=== PATIENT | male | born 1975 | race Caucasian/White ===

== ENCOUNTER 2023-03-26 13:34 | Outpatient (CLI) | payer MEDICAID, SELFPAY ==
--- NOTE | 2023-03-26 13:44 | XR_ITS ---
WS: [id number] Left knee, 4 views including skyline view of the patella, 03/26/2023 Clinical Data: LEFT KNEE JOINT PAIN Comparison: AP both knees, 10/26/2012 Findings: There is medial joint compartment narrowing with a small spur of the medial tibial plateau and latera l femoral condyle. There is spurring of the posterior left patella. There are no fractures or disloca tions. The soft tissues are normal. Impression: Mild osteoarthritis of the left knee Kellgren-Julius Classification: grade 2 (minimal): definite osteophytes and possible joint space na rrowing
== END 2023-03-26 13:35 | disposition home or self-care (01) ==
PROVIDERS: PCP Nurse Practitioner Family; Visit Provider Nurse Practitioner Family
DX: M17.12 Unilateral primary osteoarthritis, left knee (principal)
CPT/HCPCS: 73564

== ENCOUNTER 2024-10-19 10:45 | Emergency (ER) | payer MEDICAID, SELFPAY ==
[2024-10-19 10:48] VITALS: BP 157/107; PULSE 70; RESP 26; TEMP 36.8; O2SAT 98; BMI 47.7
--- NOTE | 2024-10-19 11:05 | W.ED.BACK ---
HPI - Back Pain/Injury General: Chief Complaint: Back Pain/Injury Stated Complaint: abd and back pain Time Seen by Provider: 10/19/24 10:54 Source: patient Mode of arrival: ambulatory Limitations: no limitations History of Present Illness: Patient is a 49-year-old male who presents to ED today with complaint of left-sided back pain beginning this morning. Pain has been constant since onset. He describes it as a stabbing sensation. He does feel like pain radiates into the left side of his abdomen. No history of kidney or ureterolithiasis. He is not complaining of dysuria, frequency, urgency, hematuria. He has not noticed a rash. Upon arrival to the emergency department, he clearly appears uncomfortable. No known injury or trauma. He does have chronic lumbar back pain and takes celebrex, gabapentin, and baclofen for this. He states his pain today is not his typical back pain. He is not having any numbness, tingling, loss of sensation to his lower extremities. MD elicited complaint: back pain Pertinent past history: prior back pain Onset (ago): hour(s) Timing: constant Severity: severe Similar Symptoms Previously: No Quality: stabbing Location: left flank Radiation: abdomen Exacerbating factors: none Relieving factors: none Associated symptoms: Deny abdominal pain, chills, change in bowel habits, dysuria, fatigue, fever(s), nausea, urinary urgency or vomiting Work related injury: No Related Data Home Medications ?Medication ?Instructions ?Recorded ?Confirmed celecoxib 200 mg capsule 200 mg PO DAILY 10/19/24 10/19/24 gabapentin 100 mg capsule 100 - 200 mg PO QPM 10/19/24 10/19/24 tirzepatide (weight loss) 5 mg/0.5 5 mg SUBCUT Q7D 10/19/24 10/19/24 mL subcutaneous pen injector (Zepbound) Previous Rx's ?Medication ?Instructions ?Recorded hydrocodone 5 mg-acetaminophen 325 1 tab PO Q6H PRN pain #14 tabs 10/19/24 mg tablet ondansetron 4 mg disintegrating 4 mg PO Q8H PRN nausea and 10/19/24 tablet vomiting #14 tabs tamsulosin 0.4 mg capsule (Flomax) 0.4 mg PO DAILY #10 caps 10/19/24 Allergies Allergy/AdvReac Type Severity Reaction Status Date / Time Penicillins Allergy ALGY-Anaphy Verified 10/19/24 10:52 laxis Review of Systems Const: Denies: fever(s), chills, body aches, fatigue or malaise Card: Denies: chest pain Resp: Denies: dyspnea GI: Denies: abdominal pain, nausea, vomiting or change in bowel habits : Reports: flank pain; Denies: difficulty urinating, dysuria, urinary frequency, urinary urgency or urinary hesitancy Musc: Reports: back pain (L flank); Denies: neck pain, extremity pain, extremity swelling, joint pain, joint swelling or joint redness Skin/Breast: Denies: rash Neuro: Denies: dizziness Physical Exam Const: COMMON NORMALS: patient oriented x3, no limitations, alert and well nourished GENERAL APPEARANCE: in distress (appears uncomfortable secondary to pain) NUTRITIONAL APPEARANCE: obese morbidly obese (BMI 47.7) ORIENTATION/CONSCIOUSNESS: Yes awake, Yes oriented to person, Yes oriented to place and Yes oriented to time Eye: COMMON NORMALS: no scleral icterus Resp: COMMON NORMALS: normal respiratory effort and clear to auscultation bilaterally AUSCULTATION: clear to auscultation bilaterally Cardio: COMMON NORMALS: regular rate and regular rhythm RATE: regular rate RHYTHM: regular rhythm GI: COMMON NORMALS: Normal to inspection, nondistended, normoactive bowel sounds present, Soft to palpation, non-tender, No hepatosplenomegaly present and no masses PALPATION: Yes Soft to palpation and Yes No hepatosplenomegaly present : BLADDER/KIDNEY EXAM: Yes CVA tenderness on the left Back/Pelvis: COMMON NORMALS: thoracic and lumbar spine normal to inspection and straight leg raise negative bilaterally GENERAL BACK: Yes CVA tenderness Extremity: GENERAL: Yes normal exam except as noted OTHER: DP/PT pulses normal bilaterally Neuro: COMMON NORMALS: patient oriented x3, moves all extremities, no focal motor deficits and no sensory deficits noted SENSORIUM/ORIENTATION: Yes alert, Yes oriented to person, Yes oriented to place and Yes oriented to time Skin: COMMON NORMALS: no rashes or lesions noted GENERAL SKIN EXAM: no rashes or lesions noted Course Vital Signs: Vital signs: Vital Signs Temperature 98.2 F 10/19/24 10:48 Pulse Rate 70 10/19/24 10:48 Respiratory Rate 26 H 10/19/24 10:48 Blood Pressure 157/107 10/19/24 10:48 Pulse Oximetry 98 10/19/24 10:48 Oxygen Delivery Me thod Room Air 10/19/24 10:48 MDM - Back Pain/Injury Medical Decision Making Patient is a 49-year-old female presents to the ED today with a complaint of acute onset left sided back pain beginning this morning. Upon arrival he was significantly uncomfortable. Vital signs were stable. Blood work is nonactionable. UA without infection. CT scan showing a 3 mm left distal ureter stone. Patient's pain was easily controllable here and on repeat examination he is sleeping soundly in bed. Will discharge him home with a urine strainer with recommendations to bring any saved stones with him to his follow-up urology appointment. He will be discharged home with pain/nausea meds and Flomax. Return to ED precautions discussed. Medical Records I reviewed the patient's medical records. Labs I reviewed the patient's lab results. 10/19/24 11:01 10/19/24 11:01 Radiology Impressions Abdomen/Pelvis CT 10/19/24 11:15 IMPRESSION: 1. Mild LEFT hydroureteronephrosis secondary to a 3 mm calcification in the distal ureter. 2. Mild bilateral perinephric stranding, LEFT greater than RIGHT. 3. Normal appendix. 4. No GI tract obstruction. 5. Hepatic steatosis. 6. Prior cholecystectomy. Laboratory Results WBC 8.80 10^3/uL (3.29-11.43) 10/19/24 11:01 RBC 5.33 10^6/uL (3.85-5.65) 10/19/24 11:01 Hgb 16.10 g/dL (11.27-16.99) 10/19/24 11:01 Hct 47.7 % (37-53) 10/19/24 11:01 MCV 89.5 fl (82-101) 10/19/24 11:01 MCH 30.2 pg (27-33) 10/19/24 11:01 MCHC 33.8 g/dL (30-55) 10/19/24 11:01 RDW 12.8 % (12.1-15.1) 10/19/24 11:01 Plt Count 176 10^3/cmm (157-399) 10/19/24 11:01 MPV 11.8 fL (7.4-10.4) H 10/19/24 11:01 Neut % (Auto) 82.5 % 10/19/24 11:01 Lymph % (Auto) 10.2 % 10/19/24 11:01 [place] % (Auto) 6.4 % 10/19/24 11:01 Eos % (Auto) 0.3 % 10/19/24 11:01 Baso % (Auto) 0.3 % 10/19/24 11:01 Neut # (Auto) 7.25 10^3/uL (1.8-7.7) 10/19/24 11:01 Lymph # (Auto) 0.9 10^3/uL (0.8-4.8) 10/19/24 11:01 [place] # (Auto) 0.6 10^3/uL (0.2-0.9) 10/19/24 11:01 Eos # (Auto) 0.0 10^3/uL (0.0-0.8) 10/19/24 11:01 Baso # (Auto) 0.0 10^3/uL (0.0-0.1) 10/19/24 11:01 Nucleated RBC % (auto) 0 % 10/19/24 11:01 Nucleated RBCs # 0.0 /100WBC 10/19/24 11:01 Sodium 139 mmol/L (136-145) 10/19/24 11:01 Potassium 4.0 mmol/L (3.5-5.1) 10/19/24 11:01 Chloride 103 mmol/L (98-107) 10/19/24 11:01 Carbon Dioxide 22 mmol/L (22-29) 10/19/24 11:01 Anion Gap 18.0 (5-19) 10/19/24 11:01 BUN 20 mg/dL (6-20) 10/19/24 11:01 Creatinine 1.3 mg/dL (0.7-1.2) H 10/19/24 11:01 GFR Calculation 58.4 mL/min (90-130) L 10/19/24 11:01 Glucose 128 mg/dL (65-115) H 10/19/24 11:01 Calculated Osmolality 292 mOsm/kg (285-295) 10/19/24 11:01 Calcium 8.9 mg/dL (8.5-10.5) 10/19/24 11:01 Total Bilirubin 1.1 mg/dL (0.15-1.2) 10/19/24 11:01 AST 27 U/L (0-40) 10/19/24 11:01 ALT 38 U/L (0-41) 10/19/24 11:01 Alkaline Phosphatase 91 U/L (40-130) 10/19/24 11:01 Total Protein 7.8 g/dL (6.6-8.7) 10/19/24 11:01 Albumin 4.7 g/dL (3.5-5.2) 10/19/24 11:01 Globulin 3.1 g/dL (1.3-4.6) 10/19/24 11:01 Urine Color [place] (Yellow) A 10/19/24 11:36 Urine Appearance Cloudy (CLEAR) A 10/19/24 11:36 Urine pH 5 (5-7) 10/19/24 11:36 Ur Specific [place] 1.025 (1.005-1.030) 10/19/24 11:36 Urine Protein Trace (Negative) 10/19/24 11:36 Urine Glucose (UA) Norm (Normal) 10/19/24 11:36 Urine Ketones Negative (Negative) 10/19/24 11:36 Urine Blood Neg (Negative) 10/19/24 11:36 Urine Nitrate Negative (Negative) 10/19/24 11:36 Urine Bilirubin 1+ (Negative) H 10/19/24 11:36 Urine Urobilinogen 1 mg/dL (Negative) H 10/19/24 11:36 Ur Leukocyte Esterase Negative (Negative) 10/19/24 11:36 Urine RBC 0-2 /hpf (0-2) 10/19/24 11:36 Urine WBC 0-5 /hpf (0-5) 10/19/24 11:36 Ur Squamous Epith Cells 0-5 /hpf (0-5) 10/19/24 11:36 Amorphous Sediment Not Reportable 10/19/24 11:36 Urine Bacteria None seen /hpf (NONE) 10/19/24 11:36 Hyaline Casts 5.77 /lpf 10/19/24 11:36 All radiology interpretation(s) finalized by discharge Discharge Plan Discharge Patient Disposition: Home Clinical Impression: Calculus of distal left ureter Condition: Stable Prescriptions: New hydrocodone-acetaminophen 5-325 mg tablet 1 tab PO Q6H PRN (Reason: pain) Qty: 14 0RF ondansetron 4 mg tablet,disintegrating 4 mg PO Q8H PRN (Reason: nausea and vomiting) Qty: 14 0RF tamsulosin [Flomax] 0.4 mg capsule 0.4 mg PO DAILY Qty: 10 0RF No Action gabapentin 100 mg capsule 100 - 200 mg PO QPM Zepbound 5 mg/0.5 mL pen injector 5 mg SUBCUT Q7D celecoxib 200 mg capsule 200 mg PO DAILY Discharge Orders: Discharge ED (Routine); Ordered 10/19/24 Ordered By: Iris Matthew Referrals: Dianne Perea DO [Primary Care Provider] - Patient Instructions: Ureteral Stones (ED), Opioid Safety, Pain Management Activity Restrictions/Additional Instructions: Your CT scan today did show a 3 mm left distal ureter stone. You will be sent home with a urine strainer. Begin straining your urine and bring any saved stones with you to your follow-up urology appointment. You need to push fluids as much as possible. You may take the prescribed pain and nausea medications as needed for significant discomfort. You need to return the emergency department for worsening or uncontrollable pain, repetitive episodes of vomiting, fevers, or any other concerns you may have. Print Language: Cambodian Coding Level of Care Code ED Supervisor [employer] for [employer]
[2024-10-19 11:11] LABS: Basophils % 0.3 %; Eosinophils % 0.3 %; Hematocrit 47.7 % (37-53); Lymphocytes # 0.9 10^3/uL (0.8-4.8); Lymphocytes % 10.2 %; Mean Corpuscular HGB Conc 33.8 g/dL (30-55); Mean Corpuscular Hemoglobin 30.2 pg (27-33); Mean Corpuscular Volume 89.5 fl (82-101); Mean Platelet Volume 11.8 fL (7.4-10.4); Monocytes # 0.6 10^3/uL (0.2-0.9); Monocytes % 6.4 %; Neutrophils # 7.25 10^3/uL (1.8-7.7); Neutrophils % 82.5 %; Nucleated Red Blood Cells % 0 %; Platelet Count 176 10^3/cmm (157-399); Red Blood Count 5.33 10^6/uL (3.85-5.65); Red Cell Distribution Width 12.8 % (12.1-15.1)
--- NOTE | 2024-10-19 11:15 | CT_ITS ---
WS: [id number] CT ABDOMEN AND PELVIS NONCONTRAST HISTORY: L sided back pain TECHNIQUE: Imaging performed through the abdomen and pelvis. Coronal and sagittal reformats are submitted. All CT scans at [facility] use at least one of these dose optimization techniques: automated exposure control; mA and/or kV adjustment per patient size (includes targeted exams where dose is matched to clinical indication); or iterative reconstruction. DLP: 1802.37 mGy.cm COMPARISON: None available. Lower thorax: Lung bases are clear. Visualized heart is normal. No hiatal hernia. Liver: Mild diffuse hepatic steatosis. Mild hepatomegaly. Gallbladder: Prior cholecystectomy. Pancreas: Normal size and attenuation. Normal pancreatic duct. No pancreatitis or mass. Spleen: Normal. Adrenal glands: Normal. No mass. Right kidney: Mild perinephric stranding. No obstruction. No renal calcifications. Left kidney: Mild perinephric stranding and mild hydroureteronephrosis. Mild periureteral stranding secondary to a 3 mm calcification in the distal ureter nearly at the UV junction. No additional renal calcifications. Aorta: Normal abdominal aorta, no aneurysm or atherosclerosis. No free fluid, intraperitoneal air or significant lymphadenopathy. GI tract: Normal appendix no obstruction. No colitis. Minimal diverticular disease without acute diverticulitis. Abdominal wall: Small umbilical hernia contains fat only. Pelvis: Urinary bladder is not distended. No adenopathy or free fluid. Osseous structures: Mild increase in lumbar lordosis. Hypertrophic thoracic and lumbar spine osteophytes. No destructive bone lesions. CT/CT kidney stone [id number] IMPRESSION: 1. Mild LEFT hydroureteronephrosis secondary to a 3 mm calcification in the di stal ureter. 2. Mild bilateral perinephric stranding, LEFT greater than RIGHT. 3. Normal appendix. 4. No GI tract obstruction. 5. Hepatic steatosis. 6. Prior cholecystectomy.
[2024-10-19] MEDS: ketorolac 60 mg/2 mL INJ 30 MG IVP (11:33)
[2024-10-19] MEDS: ondansetron 2 mg/ML SDV 2 mL 4 MG IVP (11:33)
[2024-10-19] MEDS: sodium chloride 0.9% 1,000 ML 999 ML IV (11:34)
[2024-10-19 11:42] LABS: Alanine Aminotransferase 38 U/L (0-41); Albumin Level 4.7 g/dL (3.5-5.2); Alkaline Phosphatase 91 U/L (40-130); Aspartate Amino Transferase 27 U/L (0-40); Blood Urea Nitrogen 20 mg/dL (6-20); Calcium 8.9 mg/dL (8.5-10.5); Carbon Dioxide 22 mmol/L (22-29); Chloride 103 mmol/L (98-107); Creatinine Clr Calc Pharmacy 94.2415; Globulin 3.1 g/dL (1.3-4.6); Glomerular Filtration Rate 58.4 mL/min (90-130); Glucose 128 mg/dL (65-115); Osmolality Calculated 292 mOsm/kg (285-295); Sodium 139 mmol/L (136-145); Total Bilirubin 1.1 mg/dL (0.15-1.2); Total Protein 7.8 g/dL (6.6-8.7)
[2024-10-19 11:52] LABS: Bacteria Urine None Seen /hpf; Hyaline Casts Urine 5.77 /lpf; RBC Urine 0-2 /hpf (0-2); Squamous Epithelial Cell Urine 0-5 /hpf (0-5); WBC Urine 0-5 /hpf (0-5)
[2024-10-19 12:06] LABS: Urine Appearance Cloudy (CLEAR); Urine Color Orange (Yellow)
[2024-10-19 12:07] LABS: Add Urine Culture? No; Add Urine Microscopic? YES; Bilirubin Urine 1+ (Negative); Blood Urine Neg (Negative); Glucose Urine UA Norm (Normal); Ketones Urine Negative (Negative); Leukocyte Esterase Urine Negative (Negative); Nitrate Urine Negative (Negative); Protein Urine Trace (Negative); Specific Gravity, Urine 1.025 (1.005-1.030); Urobilinogen Urine 1 mg/dL (Negative); pH Urine 5 (5-7)
[2024-10-19 12:58] VITALS: BP 170/95; PULSE 79; O2SAT 95
--- NOTE | 2024-10-20 08:58 | DCPLANNER ---
Urology referral sent to [facility]
== END 2024-10-19 12:59 | disposition home or self-care (01) ==
PROVIDERS: Emergency Provider Physician Assistant; PCP Family Medicine
DX: N20.1 Calculus of ureter (principal)
CPT/HCPCS: 74176; 80053; 81001; 85025; 96374; 96375; 99285; J1885; J2405; J7030